=== PATIENT | female | born 1955 | race Caucasian/White ===

== ENCOUNTER 2025-04-26 13:07 | Emergency (ER) | payer MEDICARE ==
[~2025-04-26] VITALS: Ht 154.9 cm; Wt 118.8 kg
[~2025-04-26 13:07] MED LIST: ALBU.083IS INH; AZIT250 PO; PRED20 PO
[2025-04-26] MEDS ORDERED: CEPH500 PO (13:20)
== END 2025-04-26 13:26 | disposition home or self-care (01) ==
LOC: ER 13:07
DX: L03.116 Cellulitis of left lower limb (principal); S80.812A Abrasion, left lower leg, initial encounter; R60.0 Localized edema; J45.909 Unspecified asthma, uncomplicated; Z79.52 Long term (current) use of systemic steroids; Z79.899 Other long term (current) drug therapy; W20.8XXA Other cause of strike by thrown, projected or falling object, initial encounter
CPT/HCPCS: 99282; A9270